=== PATIENT | female | born 1970 | race African-American/Black ===

== ENCOUNTER 2016-04-25 12:53 | Emergency (ER) ==
[2016-04-25 13:12] VITALS: BP 121/76
--- NOTE | 2016-04-25 14:09 | PROVIDER DOCUMENTATION ---
HPI-General Adult - General Chief Complaint: Flu Symptoms Stated Complaint: HIP PAIN Time Seen by Provider: 04/25/16 13:04 Source: patient Allergies/Adverse Reactions: Patient Allergies Allergy/AdvReac Type Severity Reaction Status Date / Time Sulfa (Sulfonamide Allergy Mild Unknown Verified 04/25/16 13:12 Antibiotics) [Sulfa(Sulfonamide Antibiotics)] doxycycline Allergy HIVES Verified 04/25/16 13:12 Penicillins Allergy HIVES Verified 04/25/16 13:12 ketorolac tromethamine * AdvReac Intermediate HIVES Verified 04/25/16 13:12 [From Toradol] Home Medications: Simvastatin [Zocor] 20 mg PO DAILY 03/03/12 Canagliflozin/Metformin HCl [Invokamet 150-1,000 mg Tablet] 1 each PO DAILY 07/04 - History of Present Illness -Gen Adult Nature of Presenting Problems: REPORTS BILATERAL HIP PAIN X 1MONTH BEEN TAKING TYLENOL 3 AND NORCO 7.5MG WITH NO RELIEF RADIATING TO BILATERAL LEGS. ALSO REPORTS COUGH AND COLD SYMPTOMS GREEN PRODUCTIONS X "LONGER THAN HIP PAIN". REPORTS BILATERAL HAND TINGLING AND CHEST "HURTS" INTERMITTENTLY X 1MO REPORTS PAST HX OF THIS TYPE OF CHEST PAIN FROM HEAVY LIFTING. REPORTS THIS EPISODE OF CHEST PAIN STARTED BACK HURTING UPON WHEN PT STARTED WORKING AGAIN RADIATING TO SHOULDERS AND NECK. DENIES SOB, DIAPHORESIS,N,V. Location of Pain/Injury: reports: lower extremity Quality of Pain: reports: aching Severity: reports: moderate Onset/Duration: reports: other (1MO) Timing: reports: still present Similar Symptoms Previously?: Yes Recently seen or treated by another doctor?: No Review of Systems - Adult - REVIEW OF SYSTEMS - ADULT Constitutional: denies: chills, fever, fatique Eyes: reports: no symptoms reported Ears, Nose, Mouth & Throat: reports: sinus problem. denies: ear pain, throat pain Cardiovascular: reports: chest pain. denies: irregular heart rate, orthopnea, syncope Respiratory: reports: cough. denies: pleurisy, shortness of breath, wheezing Gastrointestinal: denies: abdominal pain, difficulty swallowing, frequent heartburn, nausea Genitourinary: reports: no symptoms reported Musculoskeletal: reports: joint pain. denies: bone pain, joint swelling, neck pain Integumentary: reports: no symptoms reported Neurological: reports: no symptoms reported Psychiatric: reports: no symptoms reported Endocrine: reports: no symptoms reported Hematologic/Lymphatic: reports: no symptoms reported Allergic/Immunologic: reports: no symptoms reported All Other Systems: Reviewed and Negative Past History - Adult - PAST MEDICAL HISTORY-ADULT Review of Records: reports: Nursing Assessment Review, Medications Reviewed Major Childhood Illnesses: reports: denies history Cardiovascular: reports: HTN, hyperlipidemia Respiratory: reports: sleep apnea Gastrointestinal: reports: GERD Obstetrical/Gynecological: reports: denies history Genitourinary: reports: denies history Musculoskeletal: reports: chronic pain Neurological: reports: degenerative disease, headaches/migraines Endocrine/Immune: reports: Diabetes Other Conditions: reports: denies history - PRIOR SURGERIES/PROCEDURES Surgical/Procedure History: reports: reviewed, not pertinent - PRIOR HOSPITALIZATIONS Prior Hospitalizations: reports: none - IMMUNIZATION STATUS Childhood Immunizations: See Nurse Assessment Flu Vaccine: See Nurse Assessment - FAMILY HISTORY Family History: reviewed, not pertinent - SOCIAL HISTORY Smoking: cigarettes, less than 1 pack/day Provider spent 3-5 mins advising pt. on dangers of tobacco.: Discussed manners to quit use, and f/u contacts for add'l counseling. Physical Exam-General - PHYSICAL EXAM-ADULT Initial Vital Signs Reviewed: Yes - CONSTITUTIONAL General Appearance: appears well, alert, no apparent distress - EYES Eyes: PERRL/EOMI, pink conjunctivae - HEAD, EARS, NOSE, MOUTH & THROAT HENMT: normocephalic/atraumatic, moist mucous membranes, normal ENT inspection - NECK Neck: non-tender, full range of motion, supple, normal inspection - RESPIRATORY Respiratory: lungs clear, normal breath sounds, no pleuratic chest pain, no respiratory distress, no accessory muscle use. negative: chest non-tender ( LEFT AND RIGHT CHEST TTP) - CARDIOVASCULAR Cardiovascular: normal peripheral pulses, regular rate, rhythm, no edema - GASTROINTESTINAL (ABDOMEN) Abdominal Exam: normal bowel sounds, non tender, soft - LYMPHATIC Lymphatic: no adenopathy - MUSCULOSKELETAL Back Exam: normal inspection, no CVA tenderness, no vertebral tenderness Extremity: normal range of motion, non-tender, normal gait - SKIN Integumentary: normal color, normal turgor, warm/dry - NEUROLOGIC Neurologic: grossly normal, no motor/sensory deficits - PSYCHIATRIC Psych/Mental Status: normal mood/affect, normal thought content, normal thought process, oriented x 3 Progress - PLAN OF CARE/RESULTS Progress/Plan/Lab Results: Orders Category Date Time Status INFLUENZA SCREEN PL Stat Lab 04/25/16 13:15 Completed Vital Signs - 24 hr 04/25/16 13:05 Temperature 98.2 F Pulse Rate 65 Respiratory 18 Rate Blood Pressure 121/76 O2 Sat by Pulse 96 Oximetry Orders Category Date Time Status INFLUENZA SCREEN PL Stat Lab 04/25/16 13:15 Completed Laboratory Tests 04/25/16 13:15 Influenza A (Rapid) NEGATIVE Influenza B (Rapid) NEGATIVE Orders Category Date Time Status CBC WITH DIFF [HEME] Stat Lab 04/25/16 14:58 Ordered CMP [COMPREHENSIVE METABOLIC PANEL] [CHEM] Stat Lab 04/25/16 14:58 Ordered Cardiac Profile [CK PROFILE] [SP CHEM] Stat Lab 04/25/16 14:[address] Stat Lab 04/25/16 13:15 Completed TROPONIN T Stat Lab 04/25/16 14:58 Ordered Laboratory Tests 04/25/16 13:15 Influenza A (Rapid) NEGATIVE Influenza B (Rapid) NEGATIVE Laboratory Tests 04/25/16 04/25/16 04/25/16 13:15 15:30 15:30 WBC 7.11 RBC 5.01 Hgb 15.1 Hct 43.6 MCV 87.0 MCH 30.1 MCHC 34.6 RDW Std Deviation 14.2 Plt Count 371 MPV 9.7 Immature Gran % (Auto) 0.3 Neut % (Auto) 45.1 Lymph % (Auto) 43.2 [place] % (Auto) 8.4 Eos % (Auto) 2.4 Baso % (Auto) 0.6 Immature Gran # (Auto) 0.02 Neut # (Auto) 3.21 Lymph # (Auto) 3.07 [place] # (Auto) 0.60 H Eos # (Auto) 0.17 Baso # (Auto) 0.04 Sodium 136 Potassium 3.9 Chloride 101 Carbon Dioxide 26 Anion Gap 9 BUN 10 Creatinine 0.6 Estimated GFR/1.73 m2 > 60 BUN/Creatinine Ratio 17 Glucose 110 H Calculated Osmolality 272 Calcium 9.7 Total Bilirubin 0.20 AST 11 ALT 10 Alkaline Phosphatase 67 Creatine Kinase 56 Troponin T Total Protein 7.0 Albumin 4.0 Globulin 3.0 Albumin/Globulin Ratio 1.0 Influenza A (Rapid) NEGATIVE Influenza B (Rapid) NEGATIVE 04/25/16 15:30 WBC RBC Hgb Hct MCV MCH MCHC RDW Std Deviation Plt Count MPV Immature Gran % (Auto) Neut % (Auto) Lymph % (Auto) [place] % (Auto) Eos % (Auto) Baso % (Auto) Immature Gran # (Auto) Neut # (Auto) Lymph # (Auto) [place] # (Auto) Eos # (Auto) Baso # (Auto) Sodium Potassium Chloride Carbon Dioxide Anion Gap BUN Creatinine Estimated GFR/1.73 m2 BUN/Creatinine Ratio Glucose Calculated Osmolality Calcium Total Bilirubin AST ALT Alkaline Phosphatase Creatine Kinase Troponin T < 0.010 Total Protein Albumin Globulin Albumin/Globulin Ratio Influenza A (Rapid) Influenza B (Rapid) - EKG 1 Time of EKG reading by physician:: 15:16 EKG Read and Signed by:: Fabby Graves EKG Interpretation (*Must complete 3 of following elements*): Abnormal (LOW VOLTAGE QRS) Rate: 56 Rhythm: SINUS TACHY [place]: normal - XRAY 1 XRAY: Bilateral XRAY Study: Chest Impression: Normal XRAY Interpretation: NAD Departure - Departure Time of Disposition Order: 14:59 DIAGNOSIS: Chest wall pain Arthralgia Qualifiers: Joint pain location: hip Laterality: bilateral Qualified Code(s): M25.551 - Pain in right hip; M25.552 - Pain in left hip URI (upper respiratory infection) Qualifiers: URI type: unspecified URI Qualified Code(s): J06.9 - Acute upper respiratory infection, unspecified Disposition: HOME 01 Certified Medical Emergency: Emergent Condition: Stable Additional Instructions: ED Follow Up Instructions: You have been treated by a care provider in the Emergency Department. These instructions are being provided to you so you can have an understanding of how to care for yourself upon discharge. Upon discharge from the Emergency Department, you are responsible for making arrangements for follow-up care by a physician of your choice. Take all prescribed medications as directed. Return to the Emergency Department immediately for any new or worsening symptoms. You may call the Physician Referral phone number at [phone] to obtain a list of Physicians who are taking new patients. Prescriptions: Promethazine/Dextromethorphan [Promethazine-Dm Solution] 473 ml PO DIRECTED # 1 syrup Benzonatate [Tessalon [place]] 200 mg PO TID #30 capsule Azithromycin [Zithromax Z-Boaz] 250 mg PO DIRECTED #1 pkg Referrals: Phani Rodriguez MD [Primary Care Provider] - Attestation - Scribe Verification/Attestation Scribe:: Natalie Chung Acting as Scribe for:: Carmen Forde Scribe documention review:: This chart was documented by a scribe and accurately reflects the service the provider performed and the decisions made by the provider.
[2016-04-25 15:31] LABS: MANUAL DIFF NEEDED? NO
[2016-04-25 15:33] LABS: BASO% 0.6 % (0.0-0.8); EOS# 0.17 X1000 (0.0-0.7); EOS% 2.4 % (0.0-10.0); HEMATOCRIT 43.6 % (37.0-47.0); HEMOGLOBIN 15.1 g/dL (12.0-16.0); IMM GRAN# 0.02 X1000 (0.0-0.04); IMM GRAN% 0.3 % (0.0-0.5); LYMPH# 3.07 X1000 (1.2-3.4); LYMPH% 43.2 % (20.5-51.1); MCH 30.1 PG (27-31); MCHC 34.6 g/dL (33-37); MONO% 8.4 % (1.7-9.3); MPV 9.7 FL (7.4-10.4); NEUT% 45.1 % (42.2-75.2); PLT 371 X1000 (130-400); RBC 5.01 XMIL (4.2-5.4)
[2016-04-25] MEDS ORDERED: NORCO-7.5 PO ONE (15:54)
[2016-04-25 15:55] LABS: AGAP 9; ALKALINE PHOSPHATASE 67 U/L (32-104); BUN 10 mg/dL (8-22); CALCIUM 9.7 mg/dL (8.8-10.2); CHLORIDE 101 mmol/L (98-107); CK PROFILE 56 U/L (24-173); COSMO 272; GOT 11 U/L (10-30); GPT 10 U/L (10-36); POTASSIUM 3.9 mmol/L (3.5-5.1); SODIUM 136 mmol/L (136-145); TCO2 26 mmol/L (25-35)
--- NOTE | 2016-04-25 16:12 | EKG Report ---
Test Performed on : 04/25/2016 3:16:14 PM Test Reason : chest pain Blood Pressure : / mmHG Vent. Rate : 056 BPM Atrial Rate : 056 BPM P-R Int : 164 ms QRS Dur : 078 ms QT Int : 430 ms P-R-T Axes : 057 023 045 degrees QTc Int : 414 ms Sinus bradycardia. Low voltage QRS Borderline ECG When compared with ECG of 24-AUG-2012 22:41, No significant change was found Unconfirmed Result
--- NOTE | 2016-04-25 16:50 | Diag Imaging Result Document ---
PROCEDURE NAME: CHEST-2 VIEWS - 04/25/2016 PA AND LATERAL RADIOGRAPH OF THE CHEST: COMPARISON: 10/22/2015. FINDINGS: There is evidence of prior granulomatous disease, stable. The lungs are clear otherwise. There is no definite pleural fluid collection. Cardiac silhouette is unremarkable. IMPRESSION: No definite acute pathology.
== END 2016-04-25 16:43 | disposition home or self-care (01) ==
LOC: P.ED 12:53
DX: J06.9 Acute upper respiratory infection, unspecified (principal); R07.89 Other chest pain; M25.552 Pain in left hip; M25.551 Pain in right hip; R94.31 Abnormal electrocardiogram [ECG] [EKG]; M79.605 Pain in left leg; M79.604 Pain in right leg; R05 Cough; R09.3 Abnormal sputum; R20.2 Paresthesia of skin; M25.512 Pain in left shoulder; M25.511 Pain in right shoulder; M54.2 Cervicalgia; I10 Essential (primary) hypertension; E78.5 Hyperlipidemia, unspecified; G89.29 Other chronic pain; E11.9 Type 2 diabetes mellitus without complications; F17.210 Nicotine dependence, cigarettes, uncomplicated; Z79.899 Other long term (current) drug therapy; Z71.6 Tobacco abuse counseling
CPT/HCPCS: 71020; 80053; 82550; 84484; 85025; 87804; 93005; 99284